=== PATIENT | female | born 1950 | race Hispanic/Latino ===

== ENCOUNTER → 2017-08-31 | Outpatient (CLI) | payer SELFPAY ==
--- NOTE | 2017-09-02 12:36 | MAM ---
EXAM DESCRIPTION: Screening Mammogram,Right CLINICAL HISTORY: 66 years Female SCREENING . Left mastectomy for cancer. Remote family history of breast cancer. Postmenopausal. No HRT. COMPARISON: 2-D right breast digital screening mammograms 09/06/2016 and 09/01/2015. Report from prior examination also reviewed. TECHNIQUE: Right CC and MLO projection full-field images, 2-D digital screening mammographic technique. CAD was utilized. FINDINGS: Right breast parenchymal density pattern is: Scattered areas of fibroglandular density. No skin thickening or nipple retraction questionable density on the posterior margin of the medial right breast on the CC image, not seen on the MLO image. Not seen on prior studies. No focal asymmetry , and no suspicious microcalcifications right breast. IMPRESSION: BI-RADS CATEGORY: 0 - INCOMPLETE- Need additional imaging evaluation. FOLLOW-UP: Recall for additional imaging: Digital 2-D cleavage view right breast and digital full field LM image. Targeted ultrasound medial right breast. Written communication concerning the IMPRESSION and Follow-up, will be mailed to the patient and referring health care provider. Electronically signed by: Cricket Yang MD 09/02/2017 12:34 PM CDT
== END ==
LOC: MAMMO 16:30
PROVIDERS: ATTEND Nurse Practitioner Family
DX: Z12.31 Encounter for screening mammogram for malignant neoplasm of breast (principal)

== ENCOUNTER → 2017-09-28 | Outpatient (CLI) | payer SELFPAY | END | disposition home or self-care (01) | LOC: YCFC.O 10:08 | PROVIDERS: ATTEND Nurse Practitioner Family | DX: E78.2 Mixed hyperlipidemia (principal); I10 Essential (primary) hypertension; R73.09 Other abnormal glucose ==

== ENCOUNTER → 2018-03-07 | Outpatient (CLI) | payer MEDICAID ==
--- NOTE | 2018-03-07 14:51 | US ---
EXAM DESCRIPTION: Breast,Right: Ultrasound CLINICAL HISTORY: 67 yearsFemaleABNORMAL MAMMO. Focal asymmetry medial right breast. Left breast cancer with subtotal mastectomy. COMPARISON: Digital 3-D tomosynthesis diagnostic right breast on this visit. 2-D digital screening right breast mammogram 08/31/2017. TECHNIQUE: Transcutaneous scanning of the medial right breast utilizing two-dimensional and Doppler modes. Scanning performed by the hearing aid consultant and Dr. Yang. FINDINGS: Scanning of the medial right breast abutting the chest wall. Homogeneous fatty echotexture with vascular structures. No distinct solid mass or cyst. No parenchymal edema or large calcification. No skin changes. IMPRESSION: 1. Bi-Rads Category 2: Benign. 2. Please refer to 3-D tomosynthesis diagnostic right breast mammography on this visit. The FINDINGS and the FOLLOW-UP plan were reviewed in person with the patient after the examination. Written communication explaining the IMPRESSION and FOLLOW-UP will be mailed to the patient and referring care provider. Electronically signed by: Cricket Yang MD 03/07/2018 2:49 PM CDT
--- NOTE | 2018-03-07 14:51 | MAM ---
EXAM DESCRIPTION: 3D Diagnostic, Right: Digital Mammography CLINICAL HISTORY: 67 yearsFemaleABNORMAL MAMMO focal asymmetry in the medial right breast.. No breast cancer with partial mastectomy. COMPARISON: Targeted right breast ultrasound following this examination. 2-D digital screening mammographic study 08/31/2017.. Reports from prior examinations also reviewed. TECHNIQUE: Right LMprojection full-field images, and CC projection of the medial right breast, 3-D tomosynthesis digital mammographic technique. Also right synthesized CC LM full-field images. CAD not utilized. FINDINGS: The breast parenchymal density pattern is: Scattered areas of fibroglandular density. No skin thickening or nipple retraction vascular calcifications. No focal, stellate mass or density, focal asymmetry , and no suspicious microcalcifications right breast. ULTRASOUND: Scanning of the medial right breast abutting the chest wall. Homogeneous fatty echotexture with vascular structures. No distinct solid mass or cyst. No parenchymal edema or large calcification. No skin changes. IMPRESSION: BI-RADS CATEGORY: 2 - BENIGN FINDINGS. FOLLOW UP: Return to routine digital bilateral screening, one year interval from February 2018. Written communication explaining the IMPRESSION and follow-up, will be mailed to the patient and referring health care provider. According to the [employer], yearly mammograms are recommended starting at age 40 and continuing as long as a woman is in good health. Any breast change noted on a breast self-exam should be reported promptly to the patient's healthcare provider. Breast MRI is recommended for women with an approximately 20-25% or greater lifetime risk of breast cancer, including women with a strong family history of breast or ovarian cancer and women who have been treated for Hodgkin's disease. A negative mammographic report should not delay tissue diagnosis in patients with significant clinical history or physical findings. Extremely dense breast tissue limits the sensitivity of digital mammography. Electronically signed by: Cricket Yang MD 03/07/2018 2:49 PM CDT
== END ==
LOC: MAMMO 09:16
PROVIDERS: ATTEND Nurse Practitioner Family
DX: R92.8 Other abnormal and inconclusive findings on diagnostic imaging of breast (principal)
CPT/HCPCS: 76641; 77065; G0279

== ENCOUNTER → 2018-12-15 | Outpatient (CLI) | payer MEDICARE, MEDICAID | LOC: LAB.O 08:34 | PROVIDERS: ATTEND Nurse Practitioner Family | DX: I10 Essential (primary) hypertension (principal); E78.2 Mixed hyperlipidemia ==

== ENCOUNTER → 2019-05-21 | Outpatient (CLI) | payer OTHER | LOC: LAB.O 10:55 | PROVIDERS: ATTEND Nurse Practitioner Family | DX: R35.0 Frequency of micturition (principal) ==